=== PATIENT | female | born 1950 | race Caucasian/White ===

== ENCOUNTER 2016-12-13 23:12 | Inpatient (IN) | payer OTHER ==
--- NOTE | ~2016-12-13 | DS ---
Discharge Summary [facility] [address] [place]. [address] NAME: SULY ALEXANDRA : 54 STATUS : DIS IN PAT#: [id number] AGE: 66 ADM/REG DATE : 12/14/16 MR#: [id number] REPORT SERV DATE: 12/18/16 DICTATED BY: JORDY TONEY DATE: 12/17/16 REPORT STATUS : Draft TRANSCRIBED BY: PAM DATE: 12/17/16 ADMISSION DATE: 12/14/2016 DISCHARGE DATE: 12/17/2016 PROCEDURES DONE: 1. On 12/13/2016, chest x-ray: Right perihilar infiltrate consistent with pneumonia. 2. On 12/14/2016, chest x-ray: Continued severe bilateral asymmetric pulmonary infiltrates, right worse than left, with mild interval improvement since prior exam. Small left and trace right pleural effusion. 3. On 12/14/2016, CT of the chest without contrast. Current findings appear most consistent with perihilar pneumonia with mild fluid overload. REASON FOR ADMISSION: Shortness of breath. HOSPITAL COURSE: A 66-year-old white female with past medical history of COPD, atrial fibrillation on Xarelto, IBS, diabetes, hypertension, diabetic neuropathy, presenting with shortness of breath unknown duration. The patient was admitted for further evaluation of shortness of breath. Initial workup shows that chest x-ray is positive for pneumonia. The patient was started on Rocephin and Zithromax. In addition, the patient was also complaining of cough with sputum production of greenish-yellow in character. The patient was given mucolytic to help increase sputum production. The patient was able to improve significantly with the change of color from green-yellow to white sputum with trace of yellow sputum. The patient subsequently was feeling much better that she would like to go home. However, PT maddison recommended SNF placement. Nonetheless, the patient was insistent on going home. On further discussion, Aubree, the daughter was also contacted for further evaluation regarding the patient's discharge disposition. The daughter felt the patient can be safely discharged home since there will be people around her to help take care of her mom. DISPOSITION: The patient is feeling fine, no complaint. ACTIVITY: As tolerated. DIET: Diabetic. DISCHARGE INSTRUCTIONS: The patient will follow up with PMD within two weeks' time. DISCHARGE MEDICATIONS: 1. Amlodipine 10 mg p.o. daily. 2. Cefdinir 300 mg p.o. b.i.d., dispensed 14. 3. Florastor 250 mg p.o. b.i.d., dispensed 14. 4. Vitamin D3 2,000 units p.o. daily. 5. Iron 325 mg p.o. b.i.d. 6. Gabapentin 600 mg p.o. q.8. 7. Lisinopril 20 mg p.o. daily. 8. Claritin 10 mg p.o. daily. Discharge Summary [facility] [address] [place]. [address] NAME: SULY ALEXANDRA : 54 STATUS : DIS IN PAT#: [id number] AGE: 66 ADM/REG DATE : 12/14/16 MR#: [id number] REPORT SERV DATE: 12/18/16 DICTATED BY: JORDY TONEY DATE: 12/17/16 REPORT STATUS : Draft TRANSCRIBED BY: PAM DATE: 12/17/16 9. Lopressor 25 mg p.o. b.i.d. 10.Prilosec 40 mg p.o. daily. 11.Paxil 20 mg p.o. daily. 12.Xarelto 15 mg daily. 13.Demadex 20 mg p.o. daily. 14.Apresoline 10 mg p.o. q.8. 15.Potassium 10 mEq p.o. daily. 16.Zofran 4 mg p.o. q.6 p.r.n. 17.Percocet one tablet p.o. q.6 p.r.n. DISCHARGE DIAGNOSES: 1. Shortness of breath secondary to acute on chronic respiratory failure versus community- acquired pneumonia. 2. Community-acquired pneumonia. 3. Acute hypoxic respiratory failure. 4. Chronic obstructive pulmonary disease. 5. Atrial fibrillation. 6. Diabetes type 2. 7. Hypertension. 8. Neuropathy. ALEX/PAM Jordy Toney MD / [id number] CC: MD Adolfo Suazo MD
--- NOTE | ~2016-12-13 | HP ---
History And Physical [address] [place]. [address] NAME: SULY ALEXANDRA : 54 STATUS : ADM IN [facility]#: [id number] AGE: 66 ADM/REG DATE : 12/14/16 MR#: [id number] REPORT SERV DATE: 12/14/16 DICTATED BY: JACOB FERRIS DATE: 12/14/16 REPORT STATUS : Draft TRANSCRIBED BY: MODMaty DATE: 12/14/16 DATE OF ADMISSION: 12/14/2016 CHIEF COMPLAINT: 66-year-old female presenting with increasing shortness of breath. HISTORY OF PRESENTING ILLNESS: The patient's history was obtained through careful interview with the patient, coupled with review of [facility] and [facility] medical records. For about two and half weeks, the patient has been having increasing shortness of breath characterized by dyspnea on exertion. She also describes orthopnea and paroxysmal nocturnal dyspnea and she attempts to sleep sitting up at night. She has noticed increasing lower extremity edema. She describes chest discomfort. One element of the chest discomfort is an anterior chest discomfort, a tightness quality, 3/10 severity, but she has also had pain at the base of her right lung, felt laterally, a sharp quality, 3 to 4/10 severity, exacerbated by coughing. Her cough is productive of a thick green sputum. She has been dizzy, confused. No nausea, vomiting. REVIEW OF SYSTEMS: Otherwise, 14-point review of systems was obtained and was negative. PAST MEDICAL HISTORY: 1. COPD. 2. Pneumonia. 3. Atrial fibrillation. 4. Irritable bowel syndrome. 5. Anxiety and panic attacks. 6. Diabetes. 7. Neuropathy. 8. Diastolic congestive heart failure 2013. 9. Left adrenal adenoma. PAST SURGICAL HISTORY: Cholecystectomy. ALLERGIES: MORPHINE. SOCIAL HISTORY: The patient smokes cigarettes. Does not drink alcohol. She is but has been from her for 15 years. She lives in [place], [place], has two daughters. She has been rehabilitating at [facility]. FAMILY HISTORY: Mother with stroke, when the patient was only 11 years old. Father with CABG. CURRENT MEDICATIONS: Norvasc 10 mg p.o. daily, vitamin D, iron supplement, Neurontin 600 mg History And Physical [address] [address] NAME: SULY ALEXANDRA : 54 STATUS : ADM IN PAT#: [id number] AGE: 66 ADM/REG DATE : 12/14/16 MR#: [id number] REPORT SERV DATE: 12/14/16 DICTATED BY: JACOB FERRIS DATE: 12/14/16 REPORT STATUS : Draft TRANSCRIBED BY: PAM DATE: 12/14/16 p.o. t.i.d., hydralazine 10 mg p.o. q.8 hours, lisinopril 20 mg p.o. daily, Claritin 10 mg p.o. daily, Lopressor 25 mg p.o. b.i.d., Prilosec 40 mg p.o. daily, Zofran p.r.n., Percocet p.r.n., Paxil 20 mg p.o. daily, potassium 10 mEq daily, Xarelto 15 mg p.o. daily, Demadex 20 mg p.o. daily. PHYSICAL EXAMINATION: VITAL SIGNS: Temperature 97.9, pulse 76, blood pressure 135/70, respiratory rate 19, O2 saturation 96% on 5 L nasal cannula. GENERAL: Ill-appearing female in evidence of some distress secondary to shortness of breath and cough. HEENT: Pupils equal, round, and reactive to light. No conjunctival pallor. No scleral icterus. Nares are patent. Oropharynx is clear of obstruction. Moist mucous membranes. NECK: Trachea midline. No thyromegaly. LYMPH: No cervical lymphadenopathy. No supraclavicular lymphadenopathy. RESPIRATORY: The patient has scattered crackles on exam. I find the exam difficult to interpret, uncertain if this is more of a pulmonary edema versus infiltrate such as pneumonia exam. I do not appreciate focal egophony. The patient has a labored respiratory effort. CARDIOVASCULAR: Regular rate and rhythm. No murmurs, rubs, or gallops. I do not appreciate lower extremity edema. ABDOMEN: Soft, nontender, nondistended. Normal bowel sounds auscultated throughout. No hepatosplenomegaly. DERMATOLOGIC: Warm and dry extremities. No pallor. No cyanosis. PSYCHIATRIC: Flat affect, claims to be in a good mood. Alert and oriented x3. LABORATORY DATA: White blood cell count 10.2, hemoglobin 9, hematocrit 30, platelets 296. Sodium 142, potassium 4.6, chloride 105, bicarb 33, BUN 36, creatinine 1.57 from baseline creatinine of 0.9, glucose 216. Brain natriuretic peptide 273. Troponin negative. INR 3.0. ABG demonstrates pH 7.32, a PaCO2 of 58, a PaO2 of 73, and a bicarb of 30 on 50% FiO2. STUDIES: 1. Chest x-ray by my own evaluation shows bilateral pulmonary infiltrates, seems that the right lung is greater than the left. There is cardiomegaly. 2. CT scan of the chest without contrast was ordered urgently tonight. By my own evaluation, it seems to show that infiltrates are consistent with multifocal pneumonia. I do appreciate some air bronchograms on the CT scan. There is also significant pleural effusion noted. ASSESSMENT AND PLAN: 1. Hypoxic respiratory failure with hypercapnia. I will place on nightly BiPAP and follow up an ABG, provide supportive care. 2. Pulmonary infiltrate. I believe this is consistent with pneumonia by my evaluation of CT scan but will await official report. For now, I have started on empiric IV antibiotics to cover community-acquired pneumonia. 3. Chronic obstructive pulmonary disease. Placed on DuoNeb. Check sputum culture. 4. Atrial fibrillation, on Xarelto. Check telemetry. 5. Diabetes. Check hemoglobin A1c. Place on sliding scale insulin. History And Physical [address] [address] NAME: SULY ALEXANDRA : 54 STATUS : ADM IN [facility]#: [id number] AGE: 66 ADM/REG DATE : 12/14/16 MR#: [id number] REPORT SERV DATE: 12/14/16 DICTATED BY: JACOB FERRIS DATE: 12/14/16 REPORT STATUS : Draft TRANSCRIBED BY: PAM DATE: 12/14/16 6. Chronic diastolic congestive heart failure. Monitor volume status closely. KPL/MODL Jacob Ferris M.D. / [id number] CC: MD Сергей Suazo M.D.
[2016-12-13 22:34] LABS: BASOPHILS 0.2 %; BASOPHILS ABSOLUTE 0.02 10/3/uL (0.0-0.16); IMMATURE GRANULOCYTES 0.5 %; IMMATURE GRANULOCYTES ABSOLUTE 0.05 10/3/uL (0.0-0.11); LYMPHOCYTES 8.8 %; MEAN CORPUS HGB CONC 31.3 g/dL (32.0-36.0); MEAN CORPUSCULAR HEMOGLOB 27.8 pg (26.0-34.0); MEAN CORPUSCULAR VOLUME 88.9 fL (80-100); MONOCYTES 8.9 %; MONOCYTES ABSOLUTE 0.91 10/3/uL (0.21-1.20); NEUTROPHILS 79.6 %; PLATELET COUNT 296 10/3/uL (150-400); RBC DISTRIBUTION WIDTH 15.6 % (12.0-16.0)
[2016-12-13 22:36] LABS: BE (BASE EXCESS) 3.1 MEQ/L (0 +/- 2.5); CARBOXYHEMOGLOBIN 1.3 % (0-3); DEVICE VM; HEMOBLOGIN CONTENT 10.4 G/DL (12-16); INSTRUMENT SERIAL # 8087; METHEMOGLOBIN 0.3 % (0-3); O2 CONTENT 13.4 VOL% (18-24); PCO2 (CO2 TENSION) 58 MMHG (35-45); PO2 (O2 TENSION) 74 MMHG (79-93); SAMPLE Arterial; pH 7.33 (7.37-7.43)
[2016-12-13 22:44] LABS: ER CBC TAT 0 Hrs 14 Mins; HEMATOCRIT 30.4 % (36.0-48.0); HEMOGLOBIN 9.5 g/dL (12.0-16.0); MANUAL DIFF NO %; RED CELL COUNT 3.42 10/6/uL (4.0-5.6); WHITE BLOOD CELLS 10.2 10/3/uL (4.5-10.5)
[2016-12-13 22:55] LABS: CALCIUM, SERUM 8.7 MG/DL (8.5-10.4); CHEST PAIN PROFILE TAT 0 Hrs 25 Mins; CHLORIDE, SERUM 105 MMOL/L (96-112); CO2 (CARBON DIOXIDE) 33 MMOL/L (24-34); GFR AFRICAN AMERICAN 40 ML/MIN (>=60); GFR NON AFRICAN AMERICAN 34 ML/MIN (>=60); GLUCOSE, SERUM 216 MG/DL (60-99); SODIUM, SERUM 142 MMOL/L (135-148); TROPONIN I <0.02 NG/ML (<0.05)
[2016-12-13 22:56] LABS: BUN (BLOOD UREA NITROGEN) 36 MG/DL (6-23); CREATININE 1.57 MG/DL (0.55-1.02); POTASSIUM, SERUM 4.6 MMOL/L (3.5-5.3)
[~2016-12-13 23:12] MED LIST: AMARYL1 MG PO; AMARYL4 PO; AMB5 PO; Amaryl; CEFT5 PO; CELEXA10 PO; CRANBERRY300 MG PO; EXCEDRIN EXTRA1 EACH PO; GLUCOPHAGE1000 MG PO; GLUCOPHXR PO; Glucophage; L40 PO; LANTUS SC; LOP25 PO; NEUR600 PO; NOVOLOG SC; PAX10 PO; PRADAXA150 MG PO; PRILOSEC OTC20 MG PO; PRIN10 PO; PRIN20 PO; PROAIR HFA INH; Paxil; TYLENOL PM PO; VITAMIN D31000 UNIT PO; ZANTAC 150 PO; Zantac; [UNRECOGNIZED DRUG - REMARK]
[2016-12-14] MEDS ORDERED: KDUR10 PO (00:44)
[2016-12-14] MEDS ORDERED: APRES10B PO (00:44)
[2016-12-14] MEDS ORDERED: NEUR600 PO (00:44)
[2016-12-14] MEDS ORDERED: DEMA20 PO (00:45)
[2016-12-14] MEDS ORDERED: NORV10 PO (00:45)
[2016-12-14] MEDS ORDERED: VITAMIN D31000 UNIT PO (00:45)
[2016-12-14] MEDS ORDERED: PAX20 PO (00:45)
[2016-12-14] MEDS ORDERED: CLARIT10 PO (00:46)
[2016-12-14] MEDS ORDERED: PRILOSEC40 MG PO (00:46)
[2016-12-14] MEDS ORDERED: PRIN20 PO (00:46)
[2016-12-14] MEDS ORDERED: XARELTO15 MG PO (00:47)
[2016-12-14] MEDS ORDERED: FERROUS SULF325 M1 PO (00:47)
[2016-12-14] MEDS ORDERED: LOP25 PO (00:47)
[2016-12-14] MEDS ORDERED: PERCOCET 7.5/321 TAB PO (00:48)
[2016-12-14] MEDS ORDERED: ZOFRAN4 PO (00:48)
[2016-12-14 06:03] LABS: ALLENS TEST Pos; BIPAP 14/6 cm.H2O; CARBOXYHEMOGLOBIN 0.8 % (0-3); HCO3 (ACTUAL BICARBONATE) 27.2 MEQ/L (23-27); HEMOBLOGIN CONTENT 10.4 G/DL (12-16); INSTRUMENT SERIAL # 8083; METHEMOGLOBIN 0.3 % (0-3); O2 CONTENT 13.9 VOL% (18-24); OPERATOR ID 33449; PCO2 (CO2 TENSION) 51 MMHG (35-45); PO2 (O2 TENSION) 86 MMHG (79-93); SAMPLE Arterial; pH 7.35 (7.37-7.43)
[2016-12-14 06:47] LABS: BASOPHILS 0 %; EOSINOPHILS 0 %; HEMATOCRIT 31.1 % (36.0-48.0); HEMOGLOBIN 9.6 g/dL (12.0-16.0); IMMATURE GRANULOCYTES 0.4 %; IMMATURE GRANULOCYTES ABSOLUTE 0.03 10/3/uL (0.0-0.11); LYMPHOCYTES 6.7 %; LYMPHOCYTES ABSOLUTE 0.47 10/3/uL (0.67-4.30); MEAN CORPUS HGB CONC 30.9 g/dL (32.0-36.0); MEAN CORPUSCULAR HEMOGLOB 27.4 pg (26.0-34.0); MEAN CORPUSCULAR VOLUME 88.6 fL (80-100); MEAN PLATELET VOLUME 9.5 fL (9.2-13.0); MONOCYTES 1.7 %; MONOCYTES ABSOLUTE 0.12 10/3/uL (0.21-1.20); NEUTROPHILS 91.2 %; NEUTROPHILS ABSOLUTE 6.42 10/3/uL (2.02-8.40); PLATELET COUNT 298 10/3/uL (150-400); RBC DISTRIBUTION WIDTH 15.4 % (12.0-16.0); RED CELL COUNT 3.51 10/6/uL (4.0-5.6)
[2016-12-14 06:48] LABS: MANUAL DIFF NO %
[2016-12-14 06:53] LABS: INTERNATIONAL NORMAL RATI 2.2 UNITS (-); PARTIAL THROMBO TIME 41.4 SEC (22.5-37.2)
[2016-12-14 06:54] LABS: PROTIME (NOT ORD) 24.4 SEC (12.0-14.5)
[2016-12-14 07:11] LABS: A/G RATIO 0.5 (0.7-1.9); ALBUMIN 2.9 G/DL (3.5-5.0); ALKALINE PHOSPHATASE 229 U/L (45-117); BUN (BLOOD UREA NITROGEN) 37 MG/DL (6-23); CALCIUM, SERUM 8.8 MG/DL (8.5-10.4); CHLORIDE, SERUM 102 MMOL/L (96-112); CO2 (CARBON DIOXIDE) 28 MMOL/L (24-34); GFR AFRICAN AMERICAN 42 ML/MIN (>=60); GFR NON AFRICAN AMERICAN 36 ML/MIN (>=60); GLOBULIN 5.4 G/DL (2.5-4.1); GLUCOSE, SERUM 303 MG/DL (60-99); PHOSPHORUS, SERUM 4.4 MG/DL (2.5-4.5); POTASSIUM, SERUM 4.5 MMOL/L (3.5-5.3); SGOT(AST) 21 U/L (5-40); SGPT(ALT) 31 U/L (5-65); SODIUM, SERUM 138 MMOL/L (135-148); TOTAL BILIRUBIN 0.7 MG/DL (0-1.2); TOTAL PROTEIN 8.3 G/DL (6.0-8.5); TROPONIN I <0.02 NG/ML (<0.05)
[2016-12-14 07:57] LABS: PROCALCITONIN 0.34 ng/mL (<0.5)
[2016-12-15 06:34] LABS: BASOPHILS 0.1 %; BASOPHILS ABSOLUTE 0.01 10/3/uL (0.0-0.16); EOSINOPHILS 0.3 %; EOSINOPHILS ABSOLUTE 0.03 10/3/uL (0.0-0.53); HEMATOCRIT 28.8 % (36.0-48.0); IMMATURE GRANULOCYTES 0.3 %; IMMATURE GRANULOCYTES ABSOLUTE 0.03 10/3/uL (0.0-0.11); LYMPHOCYTES 13.4 %; LYMPHOCYTES ABSOLUTE 1.46 10/3/uL (0.67-4.30); MEAN CORPUS HGB CONC 31.3 g/dL (32.0-36.0); MEAN CORPUSCULAR HEMOGLOB 27.5 pg (26.0-34.0); MEAN CORPUSCULAR VOLUME 88.1 fL (80-100); MEAN PLATELET VOLUME 9.6 fL (9.2-13.0); MONOCYTES 10.9 %; MONOCYTES ABSOLUTE 1.19 10/3/uL (0.21-1.20); NEUTROPHILS ABSOLUTE 8.17 10/3/uL (2.02-8.40); PLATELET COUNT 304 10/3/uL (150-400); RBC DISTRIBUTION WIDTH 15.3 % (12.0-16.0); RED CELL COUNT 3.27 10/6/uL (4.0-5.6)
[2016-12-15 06:36] LABS: MANUAL DIFF NO %; WHITE BLOOD CELLS 10.9 10/3/uL (4.5-10.5)
[2016-12-15 06:49] LABS: A/G RATIO 0.6 (0.7-1.9); ALBUMIN 2.6 G/DL (3.5-5.0); CALCIUM, SERUM 8.6 MG/DL (8.5-10.4); CHLORIDE, SERUM 106 MMOL/L (96-112); CO2 (CARBON DIOXIDE) 32 MMOL/L (24-34); GFR AFRICAN AMERICAN 42 ML/MIN (>=60); GFR NON AFRICAN AMERICAN 36 ML/MIN (>=60); GLOBULIN 4.6 G/DL (2.5-4.1); PHOSPHORUS, SERUM 3.6 MG/DL (2.5-4.5); POTASSIUM, SERUM 4.6 MMOL/L (3.5-5.3); SGOT(AST) 13 U/L (5-40); SGPT(ALT) 27 U/L (5-65); SODIUM, SERUM 142 MMOL/L (135-148); TOTAL BILIRUBIN 0.5 MG/DL (0-1.2); TOTAL PROTEIN 7.2 G/DL (6.0-8.5)
[2016-12-15 06:51] LABS: ALKALINE PHOSPHATASE 174 U/L (45-117); BUN (BLOOD UREA NITROGEN) 49 MG/DL (6-23); GLUCOSE, SERUM 188 MG/DL (60-99)
[2016-12-15 10:26] LABS: BAND NEUTROPHILS 5 %; LYMPHOCYTES 13 %; LYMPHOCYTES ABSOLUTE (CALC) 1.42 10/3/uL (0.67-4.30); MONOCYTES 12 %; MONOCYTES ABSOLUTE (CALC) 1.31 10/3/uL (0.21-1.20); NEUTROPHILS ABSOLUTE (CALC) 8.18 10/3/uL (2.02-8.40); PLATELET ESTIMATE ADQ (ADEQUATE); RBC MORPHOLOGY NORM (NORMAL); SEGMENTED NEUTROPHIL (0) 70 %; TOTAL NUCLEATED CELLS 100
[2016-12-16 06:05] LABS: A/G RATIO 0.6 (0.7-1.9); ALBUMIN 2.6 G/DL (3.5-5.0); ALKALINE PHOSPHATASE 172 U/L (45-117); CALCIUM, SERUM 8.6 MG/DL (8.5-10.4); CHLORIDE, SERUM 104 MMOL/L (96-112); CO2 (CARBON DIOXIDE) 30 MMOL/L (24-34); CREATININE 1.61 MG/DL (0.55-1.02); GFR AFRICAN AMERICAN 39 ML/MIN (>=60); GFR NON AFRICAN AMERICAN 33 ML/MIN (>=60); GLOBULIN 4.4 G/DL (2.5-4.1); PHOSPHORUS, SERUM 4.2 MG/DL (2.5-4.5); POTASSIUM, SERUM 4.4 MMOL/L (3.5-5.3); SGOT(AST) 19 U/L (5-40); SGPT(ALT) 24 U/L (5-65); SODIUM, SERUM 141 MMOL/L (135-148); TOTAL BILIRUBIN 0.4 MG/DL (0-1.2)
[2016-12-16 06:09] LABS: HEMATOCRIT 27.8 % (36.0-48.0); HEMOGLOBIN 8.7 g/dL (12.0-16.0); MEAN CORPUS HGB CONC 31.3 g/dL (32.0-36.0); MEAN CORPUSCULAR HEMOGLOB 27.3 pg (26.0-34.0); MEAN CORPUSCULAR VOLUME 87.1 fL (80-100); MEAN PLATELET VOLUME 9.8 fL (9.2-13.0); PLATELET COUNT 336 10/3/uL (150-400); RBC DISTRIBUTION WIDTH 15.7 % (12.0-16.0); RED CELL COUNT 3.19 10/6/uL (4.0-5.6); WHITE BLOOD CELLS 6.7 10/3/uL (4.5-10.5)
[2016-12-16 06:10] LABS: BUN (BLOOD UREA NITROGEN) 57 MG/DL (6-23); CHOLESTEROL 131 MG/DL (< 200); GLUCOSE, SERUM 128 MG/DL (60-99); HDL CHOLESTEROL 26 MG/DL (> 49); LDL CHOLESTEROL 80 MG/DL (< 130); MANUAL DIFF YES %; NON-HDL CHOLESTEROL 105 MG/DL (< 160); TRIGLYCERIDE 129 MG/DL (< 150)
[2016-12-16 07:14] LABS: BASOPHILS 1 %; BASOPHILS ABSOLUTE (CALC) 0.07 10/3/uL (0.0-0.16); EOSINOPHILS 3 %; LYMPHOCYTES 23 %; LYMPHOCYTES ABSOLUTE (CALC) 1.54 10/3/uL (0.67-4.30); MONOCYTES 9 %; NEUTROPHILS ABSOLUTE (CALC) 4.29 10/3/uL (2.02-8.40); PLATELET ESTIMATE ADQ (ADEQUATE); RBC MORPHOLOGY NORM (NORMAL); SEGMENTED NEUTROPHIL (0) 64 %; TOTAL NUCLEATED CELLS 100
[2016-12-17 06:19] LABS: BASOPHILS 0.3 %; BASOPHILS ABSOLUTE 0.02 10/3/uL (0.0-0.16); EOSINOPHILS ABSOLUTE 0.36 10/3/uL (0.0-0.53); HEMOGLOBIN 8.9 g/dL (12.0-16.0); IMMATURE GRANULOCYTES 0.4 %; IMMATURE GRANULOCYTES ABSOLUTE 0.03 10/3/uL (0.0-0.11); LYMPHOCYTES 20.9 %; LYMPHOCYTES ABSOLUTE 1.51 10/3/uL (0.67-4.30); MEAN CORPUS HGB CONC 30.7 g/dL (32.0-36.0); MEAN CORPUSCULAR VOLUME 87.9 fL (80-100); MEAN PLATELET VOLUME 9.6 fL (9.2-13.0); MONOCYTES 10.9 %; MONOCYTES ABSOLUTE 0.79 10/3/uL (0.21-1.20); NEUTROPHILS 62.5 %; NEUTROPHILS ABSOLUTE 4.51 10/3/uL (2.02-8.40); PLATELET COUNT 379 10/3/uL (150-400); RBC DISTRIBUTION WIDTH 15.7 % (12.0-16.0); WHITE BLOOD CELLS 7.2 10/3/uL (4.5-10.5)
[2016-12-17 06:23] LABS: MANUAL DIFF NO %
[2016-12-17 06:41] LABS: A/G RATIO 0.6 (0.7-1.9); ALBUMIN 2.8 G/DL (3.5-5.0); ALKALINE PHOSPHATASE 175 U/L (45-117); CHLORIDE, SERUM 103 MMOL/L (96-112); CO2 (CARBON DIOXIDE) 29 MMOL/L (24-34); CREATININE 1.39 MG/DL (0.55-1.02); GFR AFRICAN AMERICAN 46 ML/MIN (>=60); GFR NON AFRICAN AMERICAN 40 ML/MIN (>=60); GLOBULIN 4.5 G/DL (2.5-4.1); PHOSPHORUS, SERUM 3.3 MG/DL (2.5-4.5); POTASSIUM, SERUM 4.3 MMOL/L (3.5-5.3); SGOT(AST) 14 U/L (5-40); SGPT(ALT) 25 U/L (5-65); SODIUM, SERUM 141 MMOL/L (135-148); TOTAL BILIRUBIN 0.5 MG/DL (0-1.2); TOTAL PROTEIN 7.3 G/DL (6.0-8.5)
[2016-12-17 06:42] LABS: BUN (BLOOD UREA NITROGEN) 49 MG/DL (6-23); GLUCOSE, SERUM 205 MG/DL (60-99)
[2016-12-17] MEDS ORDERED: OMNICEF300 PO (16:41)
[2016-12-17] MEDS ORDERED: FLORASTOR250 MG PO (16:41)
[2017-02-23] MEDS ORDERED: BUM1 PO (13:24)
[2017-02-23] MEDS ORDERED: DUONEB INH (13:26)
[2017-03-22] MEDS ORDERED: BUM1 PO (21:36)
[2017-03-22] MEDS ORDERED: LIPITOR40 PO (21:37)
[2017-03-22] MEDS ORDERED: NEUR300 PO ×2 (21:37→21:38)
[2017-03-22] MEDS ORDERED: CORDARONE PO (21:37)
[2017-03-22] MEDS ORDERED: HUMALOG SC (21:38)
[2017-03-22] MEDS ORDERED: LEVEMIR SC (21:39)
[2017-03-22] MEDS ORDERED: APRES10B PO (21:39)
[2017-03-22] MEDS ORDERED: DUONEB INH (21:39)
[2017-03-22] MEDS ORDERED: CLARIT10 PO (21:40)
[2017-03-22] MEDS ORDERED: PRILOSEC40 MG PO (21:40)
[2017-03-22] MEDS ORDERED: TOPXL100 PO (21:40)
[2017-03-22] MEDS ORDERED: PAX20 PO (21:41)
[2017-03-22] MEDS ORDERED: NORV10 PO (21:41)
[2017-03-22] MEDS ORDERED: [UNRECOGNIZED DRUG - OTHER] PO (21:42)
[2017-03-22] MEDS ORDERED: XARELTO15 MG PO (21:42)
[2017-03-22] MEDS ORDERED: ASAB PO (21:43)
[2017-03-22] MEDS ORDERED: VITAMIN D1000 UNI1 PO (21:43)
[2017-03-22] MEDS ORDERED: VITAMIN E PO (21:44)
[2017-03-22] MEDS ORDERED: REFRESH OPH (21:45)
[2017-03-22] MEDS ORDERED: ANTI FUNGAL TOP (21:46)
== END 2016-12-17 19:30 | disposition home health service (06) | DRG 189 ==
LOC: ER 23:12 → 7NO 12-14 01:09
PROVIDERS: Hospitalist
DX: J96.01 Acute respiratory failure with hypoxia (principal); J18.9 Pneumonia, unspecified organism; I50.32 Chronic diastolic (congestive) heart failure; J44.0 Chronic obstructive pulmonary disease with (acute) lower respiratory infection; E11.40 Type 2 diabetes mellitus with diabetic neuropathy, unspecified; I48.2 Chronic atrial fibrillation; Z87.891 Personal history of nicotine dependence; Z79.01 Long term (current) use of anticoagulants; Z90.49 Acquired absence of other specified parts of digestive tract
CPT/HCPCS: 36600; 71010; 71250; 80048; 80053; 80061; 82805; 82962; 83036; 83605; 83735; 83880; 84100; 84145; 84484; 85025; 85610; 85730; 87070; 87205; 87449; 93005; 94640; 94660; 96374; 97162-GP; 99285; A9270-GY; G8978-CL-GP; G8979-CK-GP; J0456; J2930

== ENCOUNTER 2017-01-28 10:20 | Inpatient (IN) | payer OTHER ==
--- NOTE | ~2017-01-28 | PUL ---
[facility] [id number] [place]. [address] NAME: SULY ALEXANDRA : 54 STATUS : DIS IN PAT#: [id number] AGE: 66 ADM/REG DATE : 01/28/17 MR#: [id number] REPORT SERV DATE: 02/06/17 DICTATED BY: LUDIN SANCHEZ DATE: 02/05/17 REPORT STATUS : Draft TRANSCRIBED BY: MODMaty DATE: 02/05/17 PULMONARY FUNCTION TEST Overnight oximetry was performed on 2 L nasal cannula. 6 hours and 20 minutes of sampling time. Sats were less than 88% for 2 minutes and 44 seconds. INTERPRETATION: Normal oximetry report. ОЛЬГА/PAM Ludin Sanchez M.D. / [id number] CC: Tony Villegas Jr, MD
--- NOTE | ~2017-01-28 | HP ---
History And Physical [facility] [id number] [place]. [address] NAME: SULY ALEXANDRA : 54 STATUS : ADM IN [facility]#: [id number] AGE: 66 ADM/REG DATE : 01/28/17 MR#: [id number] REPORT SERV DATE: 01/28/17 DICTATED BY: BERKLEY GARCIA DATE: 01/28/17 REPORT STATUS : Draft TRANSCRIBED BY: MODL DATE: 01/28/17 DATE OF ADMISSION: 01/28/2017 This is a 66-year-old female, who comes in for shortness of breath. The patient used to see Dr. Krueger before but has been in the group home for about two years and she thought that she is not going to follow up with Dr. Krueger anymore because there is somebody who is visiting her in the group home, but she was not happy with that group home and she said that she almost 3 times there, so when she was admitted here in December, a month ago, she was discharged home, recovering from pneumonia. She was given prescriptions for several medications; however, she could not find a PCP to follow her up. She started taking less frequent dosing of her medications, substituted some of them from over the counter but most importantly, she decreased her metoprolol and stopped taking the Xarelto. The patient started having some increasing shortness of breath and her baseline of walking with a walker just around the house has become difficult for her. She felt dizzy at times but denies any near syncopal or syncopal episode. She denies any chest pain, palpitations. She always has chronic edema, more like a lymphedema and she denies any increase in that but later on said may be a bit. She is having hard time sleeping at night and she needs to be sitting up so that she could sleep. Finally she decided to come to the emergency room where she was found to have rapid atrial fibrillation, and she was given Cardizem which lowered down her blood pressure but not her heart rate, so they started giving her amiodarone. She denies any fever, chills, or sweats. Admits to cough but dry. No abdominal pain. No nausea. No vomiting. No urinary or bowel changes. No localized weakness. There is generalized weakness and fatigue and dyspnea on exertion and the rest of the 14-point review of systems is negative except as above. PAST MEDICAL HISTORY: Includes atrial fibrillation, COPD, pneumonia, irritable bowel syndrome, anxiety, panic attack, depression, diabetes, neuropathy, congestive heart failure, left adrenal adenoma. She had a cholecystectomy. ALLERGIES: SHE IS ALLERGIC TO MORPHINE. MEDICATIONS: Medications she should be on the following are 1. Amlodipine. 2. Vitamin D. 3. Iron. 4. Gabapentin. 5. Lisinopril. 6. Claritin. 7. Lopressor. 8. Prilosec. 9. Paxil. 10.Xarelto. 11.Demadex. 12.Apresoline. 13.Potassium. 14.Zofran. History And Physical [address] [place]. [address] NAME: SULY ALEXANDRA : 54 STATUS : ADM IN [facility]#: [id number] AGE: 66 ADM/REG DATE : 01/28/17 MR#: [id number] REPORT SERV DATE: 01/28/17 DICTATED BY: BERKLEY GARCIA DATE: 01/28/17 REPORT STATUS : Draft TRANSCRIBED BY: PAM DATE: 01/28/17 15.Percocet. Unclear on what she really is taking right now. FAMILY HISTORY: Mom with a stroke. Dad with CABG. SOCIAL HISTORY: Used to smoke, quit about 12 years ago. No alcohol. No recreational drug use. PHYSICAL EXAMINATION: GENERAL: On physical exam, she is obese, alert, and oriented x3, in mild to moderate cardiorespiratory distress. VITAL SIGNS: Include a blood pressure of 158/97, temperature of 98.8, pulse rate of 149, respirations of 24, and saturating 97% on 6 L. NECK: She has supple neck. No JVD or carotid bruits. No lymphadenopathy. HEENT: Kathleen conjunctivae. Anicteric sclerae. No pharyngeal erythema. LUNGS: Fair air entry. Crackles at the bases. Occasional wheezes. HEART: Tachycardic. Irregular. No murmurs appreciated. ABDOMEN: Positive bowel sounds. Soft, nontender. No masses. EXTREMITIES: Fair pulses. Positive edema. NEUROLOGIC: Nonlocalizing. LABORATORY DATA: Laboratories reveal a pH of 7.41, pCO2 of 41, PO2 of 83, bicarb of 25, saturating, this is at 44% FiO2. Chemistry shows a glucose of 307. Troponin is negative. BNP of 257. White count of 12.6, H and H of 11.3 and 36.2. INR of 1.1. Chest x-ray, my reading, shows cardiomegaly and some pulmonary congestion. ASSESSMENT: 1. Acute on chronic hypoxic respiratory failure. 2. Acute on chronic CHF. 3. Rapid atrial fibrillation. 4. Chronic obstructive pulmonary disease exacerbation. 5. Hypertension. 6. Uncontrolled diabetes. 7. Depression and anxiety. 8. Noncompliance. PLAN: The patient was discharged on oxygen at 2 L at home and seems to be getting better; however, due to her lack of PCP and insurance, she was not able to and could not be certain whether this acute respiratory failure is secondary to CHF, COPD, or rapid atrial fibrillation, likely multifactorial. We will get a hospice case manager to look into her financial situation. In the meantime, the patient will be admitted, diuresed, placed on antiarrhythmics, and anticoagulation. We will get an echo and have Cardiology see the patient as they know this patient from before. We will place the patient on oxygen, bronchodilators, steroids, subcu insulin protocol, and diabetic medications as well. This has been explained to the patient. She agreed and understood the plan. History And Physical [address] [place]. [address] NAME: SULY ALEXANDRA : 54 STATUS : ADM IN [facility]#: [id number] AGE: 66 ADM/REG DATE : 01/28/17 MR#: [id number] REPORT SERV DATE: 01/28/17 DICTATED BY: BERKLEY GARCIA DATE: 01/28/17 REPORT STATUS : Draft TRANSCRIBED BY: PAM DATE: 01/28/17 SACHIN/PAM Berkley Garcia M.D. / [id number] CC: Tiffany Lopez M.D.
--- NOTE | ~2017-01-28 | DS ---
Discharge Summary [facility] [address] [place]. [address] NAME: SULY ALEXANDRA : 54 STATUS : DIS IN PAT#: [id number] AGE: 66 ADM/REG DATE : 01/28/17 MR#: [id number] REPORT SERV DATE: 02/02/17 DICTATED BY: JR. CHAUDHARY WILLIAM JOHN DATE: 02/01/17 REPORT STATUS : Draft TRANSCRIBED BY: MODMaty DATE: 02/01/17 ADMISSION DATE: 01/28/2017 DISCHARGE DATE: 02/01/2017 DISCHARGE DIAGNOSES: Include: 1. Acute on chronic hypoxic respiratory failure. 2. Chronic obstructive pulmonary disease exacerbation. 3. Paroxysmal atrial fibrillation with rapid ventricular response. 4. Acute on chronic diastolic heart failure. 5. Hypertension. 6. Uncontrolled diabetes mellitus with neuropathy. 7. Noncompliance due to running out of medicine for insurance reasons. OPERATIONS, PROCEDURES, AND TREATMENTS: Include: 1. Chest x-ray done on 01/28/2017, which showed bilateral asymmetric pulmonary infiltrates possibly representing pneumonia versus asymmetric pulmonary edema. 2. Chest x-ray done on 01/29/2017, which showed vascular congestion and infiltrates, improving with residual atelectasis of left lung base. 3. Chest x-ray done on 01/30/2017, which showed stable chest. 4. Echocardiogram done on 01/30/2017, which showed technically difficult study with very limited apical views. There was grossly normal left ventricular systolic function with ejection fraction estimated at 60%. There was grossly normal right ventricular systolic size and function and moderate diastolic dysfunction. CONSULTING PHYSICIANS: Include Dr. Telles of Cardiology and Diabetic Education. DISCHARGE MEDICATIONS: Include: 1. Norvasc 10 mg orally daily. 2. Lipitor 40 mg orally daily. 3. Amiodarone 200 mg orally twice a day. 4. Vitamin D3 of 1000 units daily. 5. Neurontin 600 mg twice a day. 6. Humalog insulin 10 units before meals. 7. Claritin 10 mg orally daily. 8. Metoprolol succinate 150 mg orally daily. 9. Omeprazole 40 mg orally daily. 10.Paroxetine 20 mg orally daily. 11.Xarelto 15 mg orally daily. 12.Demadex 10 mg orally daily. 13.Prednisone 40 mg orally daily for three days, then 20 for three days, then 10 for three days, then none. 14.Levemir insulin 50 units twice a day. 15.Aspirin 81 mg orally daily. 16.Ferrous fumarate one tablet orally twice a day. HOSPITAL COURSE: The patient is a 66-year-old white female who presented to the emergency Discharge Summary [address] [address] NAME: SULY ALEXANDRA : 54 STATUS : DIS IN PAT#: [id number] AGE: 66 ADM/REG DATE : 01/28/17 MR#: [id number] REPORT SERV DATE: 02/02/17 DICTATED BY: JR. CHAUDHARY WILLIAM JOHN DATE: 02/01/17 REPORT STATUS : Draft TRANSCRIBED BY: MODMaty DATE: 02/01/17 room on 01/28/2017 for shortness of breath. The patient apparently used to see Dr. Krueger, but was in group home for about two years, apparently, she felt like she was not being cared for well and "almost three times." She left the nursing facility to live with her daughter and apparently, did not get her Medicaid renewed and was unable to afford appointment for her primary care physician before Medicaid restarted. She started taking less frequent doses of her medicines, substituting [id number] for these medicines and stopped taking Xarelto. She then began developing increasing shortness of breath and edema followed by episode of rapid heart rate and decided to come to the emergency room. On initial exam, temperature 98.8, blood pressure 158/97, heart rate 149, respiratory rate 24. Exam showed edema in the legs and a rapid heart rate was otherwise fairly unremarkable. Initial laboratory showed an arterial blood gas with a pH of 7.41, pCO2 of 41, pO2 of 83 on 44% FiO2. Her glucose at that time was 307. Troponin was negative. Brain natriuretic peptide was 257. White count was 12.6, INR was 1.1. Chest x-ray as detailed above. The patient was admitted to [address] [place] [address] for further care. Regarding her atrial fibrillation with rapid ventricular response, she was seen in consultation by Dr. Telles of Cardiology, who placed her on amiodarone with transition to oral amiodarone. Her heart rate has been controlled. She is currently on amiodarone 200 mg orally twice a day as well as metoprolol succinate 150 mg orally daily. In addition, the patient is on aspirin, statin, and was on LEONARDO inhibitor. She was also volume overloaded, got some diuresis. She has been on a fluid restriction since in the hospital. At home, she was on torsemide 20 mg orally daily, this has been reduced to 10 mg orally daily. At discharge, the patient's BUN and creatinine are 65 and 1.3. Regarding her poorly controlled diabetes, the patient again was running out of medicines and was rationing. She has had an overall poor knowledge of her insulin regimen. Her regimen has been refined to 50 units of Levemir twice a day with 10 units of Humalog before meals holding for finger blood sugar of less than 10 before meal as well as sliding scale level 3. Regarding her COPD exacerbation, the patient was on IV steroids as well as inhaled medications. This was transitioned to oral steroids. The remainder of the health problems remained stable and were not addressed during this hospitalization. The patient will be discharged home on 2 g sodium ADA, 1.5 L fluid restriction with activity as tolerated. She had a desaturation study and will be sent home on appropriate oxygen. She already has oxygen at home. Finally, the patient has no access to medications at this time. Suzan medications as been arranged by Case Management. In addition, Case Management will arrange for a followup primary care appointment in one week while the patient's Medicaid is renewed. She will need a BMP at that time. For discharge exam and laboratory, please see daily progress note. FOLLOWUP ISSUES: 1. Monitor renal markers, may need torsemide adjustment. 2. Monitoring finger blood sugar readings. 3. Follow up with Cardiology. 4. Procuring a primary care provider. 5. Refinement of oxygen requirements prior to discharge. Discharge Summary [facility] [id number] [facility] [place]. [address] NAME: SULY ALEXANDRA : 54 STATUS : DIS IN PAT#: [id number] AGE: 66 ADM/REG DATE : 01/28/17 MR#: [id number] REPORT SERV DATE: 02/02/17 DICTATED BY: JR. CHAUDHARY WILLIAM JOHN DATE: 02/01/17 REPORT STATUS : Draft TRANSCRIBED BY: PAM DATE: 02/01/17 This discharge took 45 minutes for the patient encounter, coordination of care, and documentation. DICTATED BY: Tony Chaudhary Jr, MD WJF/PAM Tony Chaudhary Jr, MD / [id number] CC: Tony Chaudhary Jr, MD
--- NOTE | ~2017-01-28 | CN ---
Consultation Report [place] [id number] [facility] [place]. [address] NAME: SULY ALEXANDRA : 54 STATUS : ADM IN [facility]#: [id number] AGE: 66 ADM/REG DATE : 01/28/17 MR#: [id number] REPORT SERV DATE: 01/28/17 DICTATED BY: ABEL MYERS DATE: 01/28/17 REPORT STATUS : Draft TRANSCRIBED BY: MODL DATE: 01/28/17 CONSULT DATE OF CONSULTATION: 01/28/2017 REASON FOR CONSULTATION: Atrial fibrillation with RVR, dyspnea, ? CHF; primary mercantile reporter lost to follow up. Never followed with Cardiology here. HISTORY OF PRESENT ILLNESS: Ms. Alexandra is a 66-year-old anxious female who is a very poor historian who has a history of obesity, diabetes, hypertension, hyperlipidemia, paroxysmal atrial fibrillation, per her report on Xarelto and metoprolol, as well as questionable CHF history, who presents with symptoms of dyspnea alone over the past three to four days. She states that she had been in her usual state of health, chronically-ill, largely dependent and unable to care for herself on a day-to-day basis, however, over the past three to four days, her breathing status had worsened, prompting her to come in for further evaluation and care. She has not had any associated chest pains, chest pressures, dizziness, or loss of consciousness. She has had increased needs of oxygen at home. Here, she was found to be in atrial fibrillation with a rapid ventricular rate, prompting consultation today. ALLERGIES: MORPHINE. FAMILY HISTORY: Noncontributory for premature cardiovascular disease. SOCIAL HISTORY: The patient lives at home with her son. She relies on family to help her with her daily activities. She is unable to ambulate reliably due to a back injury when she was younger. HOME MEDICATIONS: 1. Norvasc. 2. Aspirin. 3. Vitamin D. 4. Neurontin. 5. Hydralazine. 6. Levemir. 7. Glargine. 8. Humalog. 9. Claritin. 10.Lopressor. 11.Prilosec. 12.Percocet. 13.Paxil. 14.Xarelto. 15.Demadex. 16.Potassium. Consultation Report [place] [id number] [facility] [place]. [address] NAME: SULY ALEXANDRA : 54 STATUS : ADM IN PAT#: [id number] AGE: 66 ADM/REG DATE : 01/28/17 MR#: [id number] REPORT SERV DATE: 01/28/17 DICTATED BY: ABEL MYERS DATE: 01/28/17 REPORT STATUS : Draft TRANSCRIBED BY: PAM DATE: 01/28/17 PHYSICAL EXAMINATION: VITAL SIGNS: Blood pressure 158/97, pulse currently 90 sinus rhythm, and temperature 98.8. GENERAL: Morbidly obese. Anxious. Disheveled. Disorganized thought process. NEUROLOGIC: Awake, alert and oriented x3; no focal deficits, appropriate mood. HEENT: Moist mucous membranes, anicteric sclerae, no nasal discharge. NECK: No JVD, no carotid bruit. RESPIRATORY: Positive for rales bilaterally up to the mid lung de la torre. Mildly increased work of breathing. No overt wheezes or rhonchi. CARDIAC: Regular rate and rhythm. Distant heart sounds. No obvious murmurs, rubs or gallops. ABDOMEN: Soft, non-tender, non-distended, no rebound or guarding. EXTREMITIES: Cool with 1+ edema in the bilateral lower extremities and 1+ pulses throughout. SKIN: Warm, dry, and intact; no rash. PERTINENT TEST FINDINGS: Telemetry earlier today with atrial fibrillation with RVR. I do not see an EKG recorded on the chart. Chest x-ray with asymmetric pulmonary infiltrates, possibly suggestive of a pneumonia versus asymmetric edema. BNP 258. Potassium 3.7. Creatinine 1.05. Troponin less than 0.02. White blood cell count 12.6, hemoglobin 11.3, and platelets 265. IMPRESSION AND PLAN: Ms. Alexandra is a 66-year-old female who is a very poor historian with a reported history of CHF, as well as documented PAF from consult completed here at [facility] about 2 years ago, who presents with worsening dyspnea over the past 4 to 5 days in the setting of atrial fibrillation with RVR, mild volume overload, and COPD exacerbation/pneumonia. Accordingly, I recommend continuation of IV amiodarone for the time being to load her. Given that she is currently in sinus rhythm, it will be fine to transition her to oral amiodarone tomorrow, with plans to wean this off over the next couple of months. Otherwise I recommend continuation of Xarelto. Continuation of aspirin, addition of statin, continuation of beta- tayla, and addition of an LEONARDO inhibitor. She will be dosed with IV Lasix for careful diuresis for mild volume overload and will have an echocardiogram for interval assessment of her ejection fraction. Otherwise I agree with the primary service in treating her COPD exacerbation/pneumonia as well as having the patient case coordinator evaluate her financial situation. VR/MODL Abel Myers MD / [id number] Consultation Report [address] [place]. [address] NAME: SULY ALEXANDRA : 54 STATUS : ADM IN [facility]#: [id number] AGE: 66 ADM/REG DATE : 01/28/17 MR#: [id number] REPORT SERV DATE: 01/28/17 DICTATED BY: ABEL MYERS DATE: 01/28/17 REPORT STATUS : Draft TRANSCRIBED BY: MODMaty DATE: 01/28/17 CC: Albert Saldana M.D.
[2017-01-28 09:47] LABS: BE (BASE EXCESS) 0.8 MEQ/L (0 +/- 2.5); CARBOXYHEMOGLOBIN 1.7 % (0-3); DEVICE SM; HCO3 (ACTUAL BICARBONATE) 25.4 MEQ/L (23-27); HEMOBLOGIN CONTENT 12.1 G/DL (12-16); INSTRUMENT SERIAL # 8087; METHEMOGLOBIN 0.3 % (0-3); O2 CONTENT 16.2 VOL% (18-24); PCO2 (CO2 TENSION) 41 MMHG (35-45); PO2 (O2 TENSION) 83 MMHG (79-93); SAMPLE Arterial; pH 7.41 (7.37-7.43)
[2017-01-28 10:12] LABS: BASOPHILS 0.2 %; BASOPHILS ABSOLUTE 0.02 10/3/uL (0.0-0.16); EOSINOPHILS 2.1 %; EOSINOPHILS ABSOLUTE 0.26 10/3/uL (0.0-0.53); IMMATURE GRANULOCYTES 0.4 %; IMMATURE GRANULOCYTES ABSOLUTE 0.05 10/3/uL (0.0-0.11); LYMPHOCYTES ABSOLUTE 1.77 10/3/uL (0.67-4.30); MEAN CORPUS HGB CONC 31.2 g/dL (32.0-36.0); MEAN CORPUSCULAR HEMOGLOB 26.7 pg (26.0-34.0); MEAN CORPUSCULAR VOLUME 85.6 fL (80-100); MEAN PLATELET VOLUME 9.6 fL (9.2-13.0); MONOCYTES 7.2 %; MONOCYTES ABSOLUTE 0.91 10/3/uL (0.21-1.20); NEUTROPHILS 76.1 %; NEUTROPHILS ABSOLUTE 9.59 10/3/uL (2.02-8.40); RBC DISTRIBUTION WIDTH 16.2 % (12.0-16.0)
[2017-01-28 10:14] LABS: ER CBC TAT 0 Hrs 08 Mins; HEMATOCRIT 36.2 % (36.0-48.0); HEMOGLOBIN 11.3 g/dL (12.0-16.0); PLATELET COUNT 265 10/3/uL (150-400); RED CELL COUNT 4.23 10/6/uL (4.0-5.6); WHITE BLOOD CELLS 12.6 10/3/uL (4.5-10.5)
[2017-01-28 10:15] LABS: MANUAL DIFF NO %
[~2017-01-28 10:20] MED LIST changes: +APRES10B PO; +CLARIT10 PO; +DEMA20 PO; +FERROUS SULF325 M1 PO; +FLORASTOR250 MG PO; +KDUR10 PO; +NORV10 PO; +OMNICEF300 PO; +PAX20 PO; +PERCOCET 7.5/321 TAB PO; +PRILOSEC40 MG PO; +XARELTO15 MG PO; +ZOFRAN4 PO
[2017-01-28 10:21] LABS: INTERNATIONAL NORMAL RATI 1.1 UNITS (-); PARTIAL THROMBO TIME 30.9 SEC (22.5-37.2)
[2017-01-28 10:22] LABS: PROTIME (NOT ORD) 14.4 SEC (12.0-14.5)
[2017-01-28 10:29] LABS: BUN (BLOOD UREA NITROGEN) 20 MG/DL (6-23); CALCIUM, SERUM 9.1 MG/DL (8.5-10.4); CHEST PAIN PROFILE TAT 0 Hrs 23 Mins; CHLORIDE, SERUM 101 MMOL/L (96-112); CO2 (CARBON DIOXIDE) 30 MMOL/L (24-34); CREATININE 1.05 MG/DL (0.55-1.02); GFR AFRICAN AMERICAN 65 ML/MIN (>=60); GFR NON AFRICAN AMERICAN 56 ML/MIN (>=60); GLUCOSE, SERUM 307 MG/DL (60-99); POTASSIUM, SERUM 3.7 MMOL/L (3.5-5.3); SODIUM, SERUM 138 MMOL/L (135-148); TROPONIN I <0.02 NG/ML (<0.05)
[2017-01-28] MEDS ORDERED: POTASSIUM OTC PO (11:16)
[2017-01-28] MEDS ORDERED: HALF81 PO (11:17)
[2017-01-28] MEDS ORDERED: PRILOSEC OTC20 MG PO (11:17)
[2017-01-28] MEDS ORDERED: LANTUSCART SC (11:18)
[2017-01-28] MEDS ORDERED: HUMALOG SC (11:18)
[2017-01-28] MEDS ORDERED: OTC ALLERGY MED PO (11:18)
[2017-01-28] MEDS ORDERED: LEVEMFLXPN SC (11:19)
[2017-01-28] MEDS ORDERED: PRILOSEC40 MG PO (11:20)
[2017-01-28] MEDS ORDERED: NORV10 PO (11:20)
[2017-01-28] MEDS ORDERED: PAX20 PO (11:20)
[2017-01-28] MEDS ORDERED: APRES10B PO (11:21)
[2017-01-28] MEDS ORDERED: DEMA20 PO (11:21)
[2017-01-28] MEDS ORDERED: XARELTO15 MG PO (11:21)
[2017-01-28] MEDS ORDERED: LOP50 PO (11:22)
[2017-01-28] MEDS ORDERED: CLARIT10 PO (11:22)
[2017-01-28] MEDS ORDERED: PERCOCET 7.5/321 TAB PO (11:23)
[2017-01-28] MEDS ORDERED: FERROUS FUMARATE PO (11:23)
[2017-01-28] MEDS ORDERED: NEUR300 PO (11:23)
[2017-01-28] MEDS ORDERED: VITAMIN D31000 UNIT PO (11:23)
[2017-01-28 15:02] LABS: ALBUMIN 2.8 G/DL (3.5-5.0); DIRECT BILIRUBIN 0.3 MG/DL (0.0-0.4); FREE T4 1.43 NG/DL (0.76-1.46); INDIRECT BILIRUBIN(NOT ORDER) 0.5 MG/DL (0.1-0.9); TOTAL BILIRUBIN 0.8 MG/DL (0-1.2); TOTAL PROTEIN 7.2 G/DL (6.0-8.5)
[2017-01-28 15:03] LABS: ULTRASENSITIVE TSH 0.873 MCIU/ML (0.358-3.740)
[2017-01-28 18:07] LABS: PHOSPHORUS, SERUM 3.2 MG/DL (2.5-4.5)
[2017-01-29 00:02] LABS: PHOSPHORUS, SERUM 2.7 MG/DL (2.5-4.5)
[2017-01-29 07:05] LABS: BASOPHILS 0 %; EOSINOPHILS 0 %; HEMATOCRIT 34.3 % (36.0-48.0); HEMOGLOBIN 10.8 g/dL (12.0-16.0); IMMATURE GRANULOCYTES 0.4 %; IMMATURE GRANULOCYTES ABSOLUTE 0.06 10/3/uL (0.0-0.11); LYMPHOCYTES 6.4 %; LYMPHOCYTES ABSOLUTE 1.07 10/3/uL (0.67-4.30); MEAN CORPUS HGB CONC 31.5 g/dL (32.0-36.0); MEAN CORPUSCULAR HEMOGLOB 26.5 pg (26.0-34.0); MEAN CORPUSCULAR VOLUME 84.3 fL (80-100); MONOCYTES 5.6 %; MONOCYTES ABSOLUTE 0.93 10/3/uL (0.21-1.20); NEUTROPHILS 87.6 %; NEUTROPHILS ABSOLUTE 14.69 10/3/uL (2.02-8.40); PLATELET COUNT 271 10/3/uL (150-400); RBC DISTRIBUTION WIDTH 15.9 % (12.0-16.0); RED CELL COUNT 4.07 10/6/uL (4.0-5.6); WHITE BLOOD CELLS 16.8 10/3/uL (4.5-10.5)
[2017-01-29 07:10] LABS: MANUAL DIFF NO %
[2017-01-29 07:18] LABS: BUN (BLOOD UREA NITROGEN) 35 MG/DL (6-23); CALCIUM, SERUM 9.3 MG/DL (8.5-10.4); CHLORIDE, SERUM 99 MMOL/L (96-112); CO2 (CARBON DIOXIDE) 28 MMOL/L (24-34); CREATININE 1.27 MG/DL (0.55-1.02); GFR AFRICAN AMERICAN 52 ML/MIN (>=60); GFR NON AFRICAN AMERICAN 45 ML/MIN (>=60); GLUCOSE, SERUM 189 MG/DL (60-99); PHOSPHORUS, SERUM 2.9 MG/DL (2.5-4.5); POTASSIUM, SERUM 4.5 MMOL/L (3.5-5.3); SODIUM, SERUM 136 MMOL/L (135-148)
[2017-01-29 11:49] LABS: CALCIUM, SERUM 9.1 MG/DL (8.5-10.4); CHLORIDE, SERUM 99 MMOL/L (96-112); CO2 (CARBON DIOXIDE) 26 MMOL/L (24-34); CREATININE 1.29 MG/DL (0.55-1.02); GFR AFRICAN AMERICAN 51 ML/MIN (>=60); GFR NON AFRICAN AMERICAN 44 ML/MIN (>=60); PHOSPHORUS, SERUM 2.8 MG/DL (2.5-4.5); SODIUM, SERUM 132 MMOL/L (135-148)
[2017-01-29 11:50] LABS: BUN (BLOOD UREA NITROGEN) 39 MG/DL (6-23); GLUCOSE, SERUM 248 MG/DL (60-99)
[2017-01-29 19:15] LABS: CALCIUM, SERUM 9.1 MG/DL (8.5-10.4); CHLORIDE, SERUM 99 MMOL/L (96-112); CO2 (CARBON DIOXIDE) 28 MMOL/L (24-34); CREATININE 1.41 MG/DL (0.55-1.02); GFR AFRICAN AMERICAN 46 ML/MIN (>=60); GFR NON AFRICAN AMERICAN 39 ML/MIN (>=60); GLUCOSE, SERUM 214 MG/DL (60-99); PHOSPHORUS, SERUM 3.4 MG/DL (2.5-4.5); SODIUM, SERUM 135 MMOL/L (135-148)
[2017-01-29 19:16] LABS: BUN (BLOOD UREA NITROGEN) 44 MG/DL (6-23)
[2017-01-30 00:03] LABS: CALCIUM, SERUM 9.6 MG/DL (8.5-10.4); CHLORIDE, SERUM 98 MMOL/L (96-112); CO2 (CARBON DIOXIDE) 31 MMOL/L (24-34); CREATININE 1.48 MG/DL (0.55-1.02); GFR AFRICAN AMERICAN 43 ML/MIN (>=60); GFR NON AFRICAN AMERICAN 37 ML/MIN (>=60); PHOSPHORUS, SERUM 4.3 MG/DL (2.5-4.5); POTASSIUM, SERUM 4.5 MMOL/L (3.5-5.3); SODIUM, SERUM 137 MMOL/L (135-148)
[2017-01-30 00:06] LABS: BUN (BLOOD UREA NITROGEN) 51 MG/DL (6-23); GLUCOSE, SERUM 150 MG/DL (60-99)
[2017-01-30 05:11] LABS: BASOPHILS 0.1 %; BASOPHILS ABSOLUTE 0.01 10/3/uL (0.0-0.16); EOSINOPHILS 0 %; HEMATOCRIT 36.2 % (36.0-48.0); HEMOGLOBIN 11.3 g/dL (12.0-16.0); IMMATURE GRANULOCYTES 0.3 %; IMMATURE GRANULOCYTES ABSOLUTE 0.05 10/3/uL (0.0-0.11); LYMPHOCYTES 6.5 %; LYMPHOCYTES ABSOLUTE 0.99 10/3/uL (0.67-4.30); MEAN CORPUS HGB CONC 31.2 g/dL (32.0-36.0); MEAN CORPUSCULAR HEMOGLOB 26.6 pg (26.0-34.0); MEAN CORPUSCULAR VOLUME 85.2 fL (80-100); MEAN PLATELET VOLUME 10.3 fL (9.2-13.0); MONOCYTES 3.1 %; MONOCYTES ABSOLUTE 0.48 10/3/uL (0.21-1.20); NEUTROPHILS ABSOLUTE 13.73 10/3/uL (2.02-8.40); PLATELET COUNT 302 10/3/uL (150-400); RBC DISTRIBUTION WIDTH 16.2 % (12.0-16.0); RED CELL COUNT 4.25 10/6/uL (4.0-5.6); WHITE BLOOD CELLS 15.3 10/3/uL (4.5-10.5)
[2017-01-30 05:15] LABS: MANUAL DIFF NO %
[2017-01-30 05:22] LABS: BUN (BLOOD UREA NITROGEN) 53 MG/DL (6-23); CALCIUM, SERUM 9.4 MG/DL (8.5-10.4); CHLORIDE, SERUM 100 MMOL/L (96-112); CREATININE 1.43 MG/DL (0.55-1.02); GFR AFRICAN AMERICAN 45 ML/MIN (>=60); GFR NON AFRICAN AMERICAN 39 ML/MIN (>=60); POTASSIUM, SERUM 4.4 MMOL/L (3.5-5.3); SODIUM, SERUM 134 MMOL/L (135-148)
[2017-01-30 05:38] LABS: CO2 (CARBON DIOXIDE) 25 MMOL/L (24-34); GLUCOSE, SERUM 215 MG/DL (60-99)
[2017-01-30 07:25] LABS: PHOSPHORUS, SERUM 4.2 MG/DL (2.5-4.5)
[2017-01-31 05:02] LABS: BASOPHILS 0 %; EOSINOPHILS 0 %; HEMATOCRIT 34.7 % (36.0-48.0); IMMATURE GRANULOCYTES 0.4 %; IMMATURE GRANULOCYTES ABSOLUTE 0.04 10/3/uL (0.0-0.11); LYMPHOCYTES 9.5 %; LYMPHOCYTES ABSOLUTE 1.01 10/3/uL (0.67-4.30); MEAN CORPUS HGB CONC 31.7 g/dL (32.0-36.0); MEAN CORPUSCULAR HEMOGLOB 26.8 pg (26.0-34.0); MEAN CORPUSCULAR VOLUME 84.4 fL (80-100); MEAN PLATELET VOLUME 10.1 fL (9.2-13.0); MONOCYTES 3.1 %; MONOCYTES ABSOLUTE 0.33 10/3/uL (0.21-1.20); NEUTROPHILS ABSOLUTE 9.27 10/3/uL (2.02-8.40); PLATELET COUNT 343 10/3/uL (150-400); RBC DISTRIBUTION WIDTH 15.9 % (12.0-16.0); RED CELL COUNT 4.11 10/6/uL (4.0-5.6); WHITE BLOOD CELLS 10.7 10/3/uL (4.5-10.5)
[2017-01-31 05:04] LABS: MANUAL DIFF NO %
[2017-01-31 05:19] LABS: CALCIUM, SERUM 9.2 MG/DL (8.5-10.4); CHLORIDE, SERUM 100 MMOL/L (96-112); CO2 (CARBON DIOXIDE) 28 MMOL/L (24-34); CREATININE 1.32 MG/DL (0.55-1.02); GFR AFRICAN AMERICAN 49 ML/MIN (>=60); GFR NON AFRICAN AMERICAN 43 ML/MIN (>=60); POTASSIUM, SERUM 4.2 MMOL/L (3.5-5.3); SODIUM, SERUM 137 MMOL/L (135-148)
[2017-01-31 05:20] LABS: BUN (BLOOD UREA NITROGEN) 61 MG/DL (6-23); GLUCOSE, SERUM 165 MG/DL (60-99)
[2017-02-01 06:33] LABS: CALCIUM, SERUM 8.8 MG/DL (8.5-10.4); CHLORIDE, SERUM 100 MMOL/L (96-112); CO2 (CARBON DIOXIDE) 31 MMOL/L (24-34); CREATININE 1.31 MG/DL (0.55-1.02); GFR AFRICAN AMERICAN 50 ML/MIN (>=60); GFR NON AFRICAN AMERICAN 43 ML/MIN (>=60); GLUCOSE, SERUM 141 MG/DL (60-99); POTASSIUM, SERUM 3.6 MMOL/L (3.5-5.3); SODIUM, SERUM 138 MMOL/L (135-148)
[2017-02-01 06:35] LABS: BUN (BLOOD UREA NITROGEN) 65 MG/DL (6-23)
[2017-02-01] MEDS ORDERED: LIPITOR40 PO (09:45)
[2017-02-01] MEDS ORDERED: CORDARONE PO (09:46)
[2017-02-01] MEDS ORDERED: TOPXL50 PO (09:47)
[2017-02-01] MEDS ORDERED: NOVOLOG SC ×2 (09:48→09:49)
[2017-02-01] MEDS ORDERED: PRILOSEC40 MG PO (09:50)
[2017-02-01] MEDS ORDERED: P10 PO (09:53)
[2017-02-01] MEDS ORDERED: LEVEMIR SC (09:54)
[2017-02-23] MEDS ORDERED: BUM1 PO (13:24)
[2017-02-23] MEDS ORDERED: DUONEB INH (13:26)
[2017-03-22] MEDS ORDERED: BUM1 PO (21:36)
[2017-03-22] MEDS ORDERED: CORDARONE PO (21:37)
[2017-03-22] MEDS ORDERED: LIPITOR40 PO (21:37)
[2017-03-22] MEDS ORDERED: NEUR300 PO ×2 (21:37→21:38)
[2017-03-22] MEDS ORDERED: HUMALOG SC (21:38)
[2017-03-22] MEDS ORDERED: LEVEMIR SC (21:39)
[2017-03-22] MEDS ORDERED: DUONEB INH (21:39)
[2017-03-22] MEDS ORDERED: APRES10B PO (21:39)
[2017-03-22] MEDS ORDERED: CLARIT10 PO (21:40)
[2017-03-22] MEDS ORDERED: TOPXL100 PO (21:40)
[2017-03-22] MEDS ORDERED: PRILOSEC40 MG PO (21:40)
[2017-03-22] MEDS ORDERED: PAX20 PO (21:41)
[2017-03-22] MEDS ORDERED: NORV10 PO (21:41)
[2017-03-22] MEDS ORDERED: XARELTO15 MG PO (21:42)
[2017-03-22] MEDS ORDERED: [UNRECOGNIZED DRUG - OTHER] PO (21:42)
[2017-03-22] MEDS ORDERED: VITAMIN D1000 UNI1 PO (21:43)
[2017-03-22] MEDS ORDERED: ASAB PO (21:43)
[2017-03-22] MEDS ORDERED: VITAMIN E PO (21:44)
[2017-03-22] MEDS ORDERED: REFRESH OPH (21:45)
[2017-03-22] MEDS ORDERED: ANTI FUNGAL TOP (21:46)
== END 2017-02-01 15:14 | disposition home or self-care (01) | DRG 291 ==
LOC: ER 10:20 → 7NO 12:32
PROVIDERS: Emergency Medicine; Internal Medicine; Neurological Surgery
DX: I11.0 Hypertensive heart disease with heart failure (principal); J96.21 Acute and chronic respiratory failure with hypoxia; J18.9 Pneumonia, unspecified organism; E11.40 Type 2 diabetes mellitus with diabetic neuropathy, unspecified; I48.0 Paroxysmal atrial fibrillation; J44.1 Chronic obstructive pulmonary disease with (acute) exacerbation; J44.0 Chronic obstructive pulmonary disease with (acute) lower respiratory infection; Z68.43 Body mass index [BMI] 50.0-59.9, adult; E11.65 Type 2 diabetes mellitus with hyperglycemia; F32.9 Major depressive disorder, single episode, unspecified; F41.9 Anxiety disorder, unspecified; Z91.19 Patient's noncompliance with other medical treatment and regimen; Z79.4 Long term (current) use of insulin; I50.33 Acute on chronic diastolic (congestive) heart failure; Z82.3 Family history of stroke; Z87.891 Personal history of nicotine dependence; Z91.14 Patient's other noncompliance with medication regimen; E66.01 Morbid (severe) obesity due to excess calories
CPT/HCPCS: 36600; 71010; 80048; 80076; 82805; 82947; 82962; 83735; 83880; 84100; 84439; 84443; 84484; 85025; 85610; 85730; 93005; 94640; 94762; 96374; 97161-GP; 97166-GO; 97535-GO; 99291; A9270-GY; C8929; J0282; J2920; Q9957